=== PATIENT | male | born 2000 | race Caucasian/White ===

== ENCOUNTER 2020-09-11 21:52 | Emergency (ER) | payer OTHER ==
[~2020-09-11] VITALS: Ht 177.8 cm; Wt 100.0 kg
[2020-09-11 21:58] VITALS: BP 136/86; TEMP 97.5
[2020-09-11 22:16] VITALS: PULSE 90
== END 2020-09-11 22:20 | disposition home or self-care (01) ==
LOC: COL.ER 21:52
DX: H92.01 Otalgia, right ear (principal); F17.210 Nicotine dependence, cigarettes, uncomplicated; Z96.22 Myringotomy tube(s) status

== ENCOUNTER 2020-09-14 06:18 | Emergency (ER) | payer OTHER ==
[~2020-09-14] VITALS: Ht 177.8 cm; Wt 95.9 kg
[2020-09-14 06:38] VITALS: TEMP 98.1
[2020-09-14 07:28] LABS: BASO % 0.2 % (0.0-2.0); EOS # 0.1 (0.0-0.7); EOS % 1.4 % (0-4.0); GRAN # 4.5 (1.4-6.5); GRAN % 71.8 % (42.2-75.2); HEMATOCRIT 44.3 % (36.0-47.0); HEMOGLOBIN 15.4 g/dl (12.5-16.1); LYMPH # 1.1 (1.2-3.4); LYMPH % 17.3 % (20.0-51.0); MEAN CELL VOLUME 86 fl (80.0-95.0); MEAN CORPUSCULAR HEMOGLOBIN 30 pg (26.0-32.0); MEAN CORPUSCULAR HGB CONC 35 g/dl (33.0-37.0); MEAN PLATELET VOLUME 11.2 fl (7.4-10.4); MONO # 0.6 (0.1-0.6); PLATELET COUNT 131 K/mm3 (130-400); RED BLOOD COUNT 5.17 M/mm3 (4.20-5.60); REDCELL DISTRIBUTION WIDTH-CV 11.6 % (11.5-14.5)
[2020-09-14 07:38] LABS: ALBUMIN 4.1 gm/dL (3.5-5.0); BILIRUBIN,TOTAL 0.6 mg/dL (0.0-1.0); CREATININE, serum 0.74 (0.66-1.25); POTASSIUM 3.7 mmol/L (3.4-5.0); TOTAL PROTEIN 7.1 gm/dL (6.4-8.2)
[2020-09-14 09:00] LABS: COLLECTION METHOD CLEAN CATCH
[2020-09-14 09:06] LABS: MUCOUS Present /lpf; PH 6 (5-8); SQUAMOUS EPITHELIAL None Seen /hpf; URINE APPEARANCE Clear; URINE BACTERIA None Seen /hpf; URINE BILIRUBIN Negative (NEGATIVE); URINE BLOOD Negative (NEGATIVE); URINE COLOR Yellow; URINE GLUCOSE Negative (NEGATIVE); URINE KETONE Negative (NEGATIVE); URINE LEUKOCYTE ESTERASE Negative (NEGATIVE); URINE NITRATE Negative (NEGATIVE); URINE PROTEIN(semi-quant) Negative (NEGATIVE); URINE RBC 0-2 /hpf; URINE UROBILINOGEN Negative (NEGATIVE)
[2020-09-14] MEDS ORDERED: ZOFRAN ODT4 MG PO (09:46)
[2020-09-14 10:00] VITALS: BP 116/52; PULSE 68
== END 2020-09-14 10:05 | disposition home or self-care (01) ==
LOC: COL.ER 06:18
PROVIDERS: Emergency Medicine
DX: A08.4 Viral intestinal infection, unspecified (principal); E86.0 Dehydration
CPT/HCPCS: J1885; J2405; J7030